=== PATIENT | female | born 1950 | race African-American/Black ===

== ENCOUNTER 2020-08-17 11:55 | Emergency (ER) | payer MEDICARE, MEDICAID ==
[2020-08-17] MEDS ORDERED: Dexamethasone 4 mg/ml Vial ONE (13:46)
== END 2020-08-17 13:49 | disposition home or self-care (01) ==
LOC: ERS 11:55
DX: J20.9 Acute bronchitis, unspecified (principal); E11.9 Type 2 diabetes mellitus without complications; E03.9 Hypothyroidism, unspecified; E78.5 Hyperlipidemia, unspecified; I10 Essential (primary) hypertension
CPT/HCPCS: 71046; 96372; J1100